=== PATIENT | male | born 1980 | race African-American/Black ===

== ENCOUNTER 2018-09-10 12:41 | Inpatient (IN) | payer SELFPAY ==
[~2018-09-10] VITALS: Ht 175.3 cm; Wt 68.0 kg
[~2018-09-10 12:41] MED LIST: ZIPRASIDONE IM 20 MG VIAL. IM ONE
[2018-09-10] MEDS ORDERED: IV NORMAL SALINE 1000ML BAG 1,000 ML IV ONE ×3 (13:00→15:00)
[2018-09-10 13:27] LABS: BASO # 0.1 x10^3/uL (0.0-0.2); BASO % 1 % (0-3); EOS % 0 % (0-3); HEMATOCRIT 50.2 % (39.0-53.0); HEMOGLOBIN 16.3 g/dL (13.0-17.5); LYMPH # 2.1 x10^3/uL (1.0-4.8); LYMPH % 18 % (24-48); MEAN CORPUSCULAR HEMOGLOBIN 30 pg (25-35); MEAN CORPUSCULAR HGB CONC 32 g/dL (31-37); MEAN CORPUSCULAR VOLUME 92 fL (79-100); MONO % 8 % (0-9); NEUT # 8.5 x10^3uL (1.8-7.7); NEUT % 72 % (31-73); PLATELET COUNT 175 x10^3/uL (140-400); RED BLOOD COUNT 5.48 x10^6/uL (4.30-5.70); RED CELL DISTRIBUTION WIDTH 13.8 % (11.5-14.5); WHITE BLOOD COUNT 11.7 x10^3/uL (4.0-11.0)
[2018-09-10 13:29] LABS: CALCIUM 9.3 mg/dL (8.5-10.1); CREATININE 1.9 mg/dL (0.7-1.3); GFR 39.9; POTASSIUM 3.4 mmol/L (3.5-5.1)
[2018-09-10 13:42] LABS: ACETAMIN < 2 mcg/ml (10-30); SALIC 3.4 mg/dL (2.8-20.0)
[2018-09-10 13:45] LABS: ALBUMIN/GLOBULIN RATIO 1.5 (1.0-1.7); TOTAL BILIRUBIN 0.5 mg/dL (0.2-1.0); TOTAL PROTEIN 6.7 g/dL (6.4-8.2)
[2018-09-10 14:10] LABS: BILIRUBIN,URINE SMALL (NEG); CLARITY,URINE CLEAR; COLOR,URINE AMBER; NITRITE,URINE NEGATIVE (NEG); PH,URINE 5.5; PROTEIN,URINE 100 mg/dL (NEG-TRACE)
[2018-09-10 14:19] LABS: RBC,URINE 0 /HPF (0-2); WBC,URINE OCC /HPF (0-4)
[2018-09-10 14:20] LABS: AMORPHOUS SEDIMENT,UR PRESENT /HPF; BACTERIA,URINE 0 /HPF (0-FEW); GRANULAR CASTS,URINE FEW /HPF; HYALINE CASTS, URINE MANY /HPF
[2018-09-10 14:23] LABS: AMPHETAMINE/METHAMPHETAMINE NEG (NEG); BARBITURATES NEG (NEG); BENZODIAZEPINES NEG (NEG); CANNABINOIDS POS (NEG); COCAINE NEG (NEG); METHADONE NEG (NEG); OPIATES NEG (NEG); PHENCYCLIDINE POS (NEG)
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
[2018-09-10] MEDS ORDERED: ONDANSETRON PF 4 MG/2 ML VIAL. IV PRN (15:15)
[2018-09-10] MEDS ORDERED: SODIUM BICARBONATE VIAL 50 MEQ in IV 1/2 NORMAL SALINE 1,000 ML IV SCH (16:00)
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
[2018-09-10 19:47] VITALS: BP 134/94
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
[2018-09-10 22:59] VITALS: BP 128/92
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
--- NOTE | 2018-09-11 08:34 | EKG ---
[facility] [address] [place] [address] Test Date: 2018-09-10 Test Time: 12:56:33 Pat Name: CAROLYN EDWARDS Department: Room: 671 1 Gender: M Resaw Operator: GINA : [id number] Requested By: NAEL MCWILLIAMS Order Number: [id number] Reading MD: Cordell Durant Measurements Intervals [place] Rate: 116 P: 118 CO: 114 QRS: 83 QRSD: 94 T: 46 QT: 326 QTc: 459 Interpretive Statements SINUS TACHYCARDIA NON SPECIFIC ST DEPRESSION BORDERLINE ECG No previous ECG available for comparison Electronically Signed On 09-14-2018 13:09:31 CDT by Cordell Durant
== END 2018-09-11 01:30 | disposition left against medical advice (07) | DRG 683 ==
LOC: ER 12:41 → 6 SOUTH 15:03
PROVIDERS: ADMIT Internal Medicine; ATTEND Internal Medicine
DX: N17.9 Acute kidney failure, unspecified (principal); M62.82 Rhabdomyolysis; F16.10 Hallucinogen abuse, uncomplicated; Z82.49 Family history of ischemic heart disease and other diseases of the circulatory system; Z79.899 Other long term (current) drug therapy; Z53.21 Procedure and treatment not carried out due to patient leaving prior to being seen by health care provider
CPT/HCPCS: 36415; 51701; 80053; 80307; 80329; 81001; 82550; 84484; 85025; 93005; 96361; 96365; G0480; J3486; J7030; 99285-25